=== PATIENT | female | born 1950 | race African-American/Black ===

== ENCOUNTER → 2017-04-08 | Outpatient (CLI) | payer OTHER ==
--- NOTE | 2017-04-08 14:51 | Diagnostic Imaging Report ---
PROCEDURE: Frontal and lateral views of the chest. COMPARISON: None. INDICATIONS: ANNUAL PHYSICAL FINDINGS: Lines/tubes: None. Lungs: The lungs are well inflated and grossly clear. There is no evidence of pneumonia or pulmonary edema. Pleura: There is no pleural effusion or pneumothorax. Heart and mediastinum: Enlarged cardiac silhouette. Pulmonary vasculature is normal. Uncoiled thoracic aorta. CABG changes. Bones: No acute bony abnormality. Degenerative changes in the thoracic spine. IMPRESSION: 1. enlarged cardiac silhouette, without acute cardiopulmonary disease. Yifan Patel M.D. Dictated by: Yifan Patel M.D. on 04/08/2017 at 14:51 Electronically approved by: Yifan Patel M.D. on 04/08/2017 at 14:51
== END ==
LOC: RAD 13:50
PROVIDERS: ATTEND Internal Medicine
DX: Z00.00 Encounter for general adult medical examination without abnormal findings (principal)
CPT/HCPCS: 71046